=== PATIENT | female | born 1990 | race African-American/Black ===

== ENCOUNTER 2023-03-24 13:40 | Inpatient (IN) | payer SELFPAY ==
[2023-03-24 14:58] LABS: THROAT:GRP A STREP NOT DETECTED (NOTDETECTED)
[2023-03-24] MEDS ORDERED: IBUPROFEN 400 MG TABLET (FP) PO ONE ×2 (15:08→15:21)
[2023-03-24] MEDS ORDERED: SODIUM CHLORIDE 0.9% 500 ML INFUS.BAG IV ONE (15:33)
[2023-03-24 16:32] LABS: BASO % 0.3 % (0-2.0); EOS % 0.1 % (0-4.5); HEMATOCRIT 39.3 % (32.4-45.2); HEMOGLOBIN 13.4 GM/dL (10.7-15.3); LYMPH % 14.6 % (8-40); MCH 28.4 pg (25.7-33.7); MEAN CELL VOLUME 83.3 fl (80-96); MEAN PLT VOLUME 10.3 fl (7.5-11.1); MONO % 5.3 % (3.8-10.2); NEUT % 79.7 % (42.8-82.8); PLATELET COUNT 90 10^3/uL (134-434); RBC 4.72 M/mm3 (3.60-5.2); RDW 13.8 % (11.6-15.6)
[2023-03-24 16:59] LABS: POTASSIUM 3.6 mmol/L (3.5-5.1)
[2023-03-24 17:02] LABS: ALBUMIN 3.5 g/dl (3.4-5.0); BLOOD UREA NITROGEN 11.8 mg/dL (7-18); CALCIUM 8.6 mg/dL (8.5-10.1)
[2023-03-24 17:05] LABS: CREATININE 1.1 mg/dL (0.55-1.3)
[2023-03-24 17:07] LABS: BILIRUBIN,TOTAL 4.4 mg/dL (0.2-1); TOT PROT 7.6 g/dl (6.4-8.2)
[2023-03-24] MEDS ORDERED: IBUPROFEN 400 MG TABLET (FP) PO PRN (17:45)
[2023-03-24 17:47] LABS: EPI CELLS 16 /uL (0-25.1); HCG,QUALITATIVE URINE Negative; HYALINE CASTS 1 /uL (0-3.1); PH,URINE 5.5 (5.0-8.0); URINE APPEARANCE CLOUDY; URINE BILIRUBIN 1+ (NEGATIVE); URINE COLOR ORANGE; URINE GLUCOSE (UA) NEGATIVE (NEGATIVE); URINE KETONE 2+ (NEGATIVE); URINE LEUK ESTERASE TRACE (NEGATIVE); URINE NITRITE POSITIVE (NEGATIVE); URINE PROTEIN 2+ (NEGATIVE); URINE RBC 15 /uL (0-23.9); URINE WBC 20 /uL (0-25.8)
[2023-03-24 17:55] LABS: ERYTHROCYTE SEDIMENTATION RATE 29 mm/hr (0-20)
[2023-03-24 18:49] LABS: URINE BACTERIA 476.2 /uL (0-1359)
[2023-03-24 19:44] LABS: BILIRUBIN,DIRECT 0.9 mg/dL (0.0-0.2)
[2023-03-24 22:55] VITALS: BMI 26.0
[2023-03-25 09:07] LABS: POTASSIUM 3.5 mmol/L (3.5-5.1)
[2023-03-25 09:09] LABS: CALCIUM 7.7 mg/dL (8.5-10.1)
[2023-03-25 09:10] LABS: BLOOD UREA NITROGEN 10.8 mg/dL (7-18)
[2023-03-25 09:13] LABS: CREATININE 0.9 mg/dL (0.55-1.3)
[2023-03-25 09:15] LABS: TOT PROT 6.4 g/dl (6.4-8.2)
[2023-03-25 09:20] LABS: ALBUMIN 2.8 g/dl (3.4-5.0)
[2023-03-25 09:33] LABS: BASO % 0.6 % (0-2.0); HEMATOCRIT 35.4 % (32.4-45.2); HEMOGLOBIN 12.1 GM/dL (10.7-15.3); LYMPH % 25.1 % (8-40); MCH 28.5 pg (25.7-33.7); MCHC 34.1 g/dl (32.0-36.0); MEAN CELL VOLUME 83.7 fl (80-96); MEAN PLT VOLUME 10.5 fl (7.5-11.1); NEUT % 68.3 % (42.8-82.8); PLATELET COUNT 77 10^3/uL (134-434); RBC 4.23 M/mm3 (3.60-5.2); WHITE BLOOD COUNT 5.3 K/mm3 (4.0-10.0)
[2023-03-25 09:35] LABS: INR 1.18 (0.83-1.09); PROTHROMBIN TIME (PATIENT) 13.7 SEC (9.7-13.0)
[2023-03-25 09:38] LABS: ACTIVATED PTT 29.1 SECONDS (25.2-36.5)
[2023-03-25 10:11] VITALS: RESP 18
[2023-03-25] MEDS ORDERED: PROGUANIL PO SCH ×2 (12:00→12:07)
[2023-03-25] MEDS ORDERED: ATOVAQUONE PO SCH ×2 (12:00→12:07)
[2023-03-25] MEDS: ATOVAQUONE PO SCH (12:53)
[2023-03-25] MEDS: PROGUANIL PO SCH (12:53)
[2023-03-25 13:28] LABS: HIV INTERPRETATION NEGATIVE (NEGATIVE)
[2023-03-25 13:37] LABS: ANISOCYTOSIS 1+; MACROCYTOSIS 1+; PLATELET ESTIMATE DECREASED
[2023-03-25] MEDS: ONDANSETRON 4 MG/2 ML VIAL IVPUSH PRN (14:17)
[2023-03-25] MEDS: ACETAMINOPHEN 325 MG TABLET (FP) PO PRN (14:18)
[2023-03-26] MEDS: ATOVAQUONE PO SCH (09:07)
[2023-03-26] MEDS: PROGUANIL PO SCH (09:07)
[2023-03-26] MEDS: CEFTRIAXONE 1 GM in DEXTROSE 5%-WATER - 50 ML IVPB SCH (09:07)
[2023-03-26] MEDS: SODIUM CHLORIDE 1,000 ML IV SCH (09:07)
[2023-03-26 10:46] LABS: HEMATOCRIT 34.6 % (32.4-45.2); HEMOGLOBIN 11.7 GM/dL (10.7-15.3); MCH 28.1 pg (25.7-33.7); MCHC 33.8 g/dl (32.0-36.0); MEAN CELL VOLUME 83.1 fl (80-96); MEAN PLT VOLUME 10.8 fl (7.5-11.1); PLATELET COUNT 99 10^3/uL (134-434); RBC 4.16 M/mm3 (3.60-5.2); RDW 14.2 % (11.6-15.6); WHITE BLOOD COUNT 4.2 K/mm3 (4.0-10.0)
[2023-03-26 10:58] LABS: POTASSIUM 3.3 mmol/L (3.5-5.1)
[2023-03-26 11:05] LABS: ALBUMIN 2.9 g/dl (3.4-5.0); BLOOD UREA NITROGEN 8.3 mg/dL (7-18)
[2023-03-26 11:08] LABS: TOT PROT 7.3 g/dl (6.4-8.2)
[2023-03-26] MEDS ORDERED: POTASSIUM CHLORIDE TABS 20 MEQ TABLET.ER (FP) PO ONE (13:08)
[2023-03-26 13:47] LABS: ANISOCYTOSIS 0; HELMET CELLS 0; HOWELL-JOLLY BODIES 0; MACROCYTOSIS 0; OVALOCYTE 0; ROULEAU 0; SICKELED CELLS 0; TARGET CELLS 0; TEAR DROP CELLS 0; TOXIC GRANULATION 0
[2023-03-27] MEDS: SODIUM CHLORIDE 1,000 ML IV SCH ×2 (05:55→13:52)
[2023-03-27] MEDS: ACETAMINOPHEN 325 MG TABLET (FP) PO PRN (06:46)
[2023-03-27] MEDS ORDERED: cefTRIAXone SODIUM 1 GM VIAL ONE (08:53)
[2023-03-27] MEDS: ATOVAQUONE PO SCH (08:59)
[2023-03-27] MEDS: PROGUANIL PO SCH (08:59)
[2023-03-27] MEDS: CEFTRIAXONE 1 GM in DEXTROSE 5%-WATER - 50 ML IVPB SCH (09:00)
[2023-03-27] MEDS: ONDANSETRON 4 MG/2 ML VIAL IVPUSH PRN (10:48)
[2023-03-27] MEDS ORDERED: ONDANSETRON 4 MG TABLET PO ONE (13:52)
[2023-03-27 13:59] VITALS: BP 88/46; PULSE 68; TEMP 98.3
[2023-03-27] MEDS ORDERED: PROGUANIL PO ONE (14:30)
[2023-03-27] MEDS ORDERED: ATOVAQUONE PO ONE (14:30)
[2023-03-27 15:47] LABS: BASO % 0.5 % (0-2.0); EOS % 0.5 % (0-4.5); HEMATOCRIT 30.1 % (32.4-45.2); HEMOGLOBIN 10.1 GM/dL (10.7-15.3); LYMPH % 43.6 % (8-40); MCHC 33.6 g/dl (32.0-36.0); MEAN CELL VOLUME 83.3 fl (80-96); MEAN PLT VOLUME 10.4 fl (7.5-11.1); MONO % 9.5 % (3.8-10.2); NEUT % 45.9 % (42.8-82.8); PLATELET COUNT 99 10^3/uL (134-434); RBC 3.62 M/mm3 (3.60-5.2); RDW 14.3 % (11.6-15.6); WHITE BLOOD COUNT 3.6 K/mm3 (4.0-10.0)
[2023-03-27 16:41] LABS: ANISOCYTOSIS 1+; MACROCYTOSIS 0
== END 2023-03-27 18:10 | disposition home or self-care (01) | DRG 720 ==
LOC: JER 13:40 → JERBED 17:43 → J6S 22:07
PROVIDERS: ADMIT Internal Medicine; ATTEND Internal Medicine
DX: A41.9 Sepsis, unspecified organism (principal); E80.6 Other disorders of bilirubin metabolism; D69.6 Thrombocytopenia, unspecified; B50.9 Plasmodium falciparum malaria, unspecified; E87.6 Hypokalemia; R00.0 Tachycardia, unspecified; R10.30 Lower abdominal pain, unspecified; R11.10 Vomiting, unspecified; R35.0 Frequency of micturition; R42 Dizziness and giddiness; R50.9 Fever, unspecified; R51.9 Headache, unspecified
CPT/HCPCS: 0241U-QW; 36415; 71046-TC-FY; 76705-TC; 80053; 80307; 81003; 82248; 82550; 83010; 83605; 83615; 84703; 85025; 85045; 85610; 85651; 85730; 86140; 86705; 86708; 86803; 87040; 87086; 87207; 87340; 87389; 87651; 87798; 99285-25

== ENCOUNTER 2023-04-28 12:58 | Emergency (ER) | payer OTHER ==
[2023-04-28 13:03] VITALS: BP 103/64; PULSE 68; RESP 18; TEMP 99.7; BMI 25.4
== END 2023-04-28 14:20 | disposition home or self-care (01) ==
LOC: JERFT 12:58
DX: U07.1 COVID-19 (principal); J06.9 Acute upper respiratory infection, unspecified; R09.81 Nasal congestion; R06.7 Sneezing
CPT/HCPCS: 0241U-QW; 99283-25

== ENCOUNTER 2024-01-21 13:10 | Emergency (ER) | payer OTHER ==
[2024-01-21 13:36] VITALS: BP 114/74; PULSE 67; RESP 18; TEMP 98.5; BMI 30.2
== END 2024-01-21 16:30 | disposition home or self-care (01) ==
LOC: JERFT 13:10
DX: M25.551 Pain in right hip (principal)
CPT/HCPCS: 73502-TC-RT-FY; 99283-25